=== PATIENT | male | born 1995 | race American Indian/Alaskan Native ===

== ENCOUNTER 2025-01-02 18:03 | Emergency (ER) | payer OTHER ==
[~2025-01-02] VITALS: Ht 177.8 cm; Wt 65.0 kg
[2025-01-02] MEDS ORDERED: SUBOXONE 2 MG-1 EAC2 PO (18:46)
[2025-01-02] MEDS ORDERED: SUBOXONE 2 MG-1 EAC2 SL (19:49)
[2025-01-02 20:02] VITALS: BP 127/91
== END 2025-01-02 20:02 | disposition home or self-care (01) ==
LOC: ED 18:03
DX: F11.11 Opioid abuse, in remission (principal); F17.200 Nicotine dependence, unspecified, uncomplicated
CPT/HCPCS: 99283